=== PATIENT | female | born 1990 | race Caucasian/White ===

== ENCOUNTER 2021-03-30 00:07 | Inpatient (IN) | payer BC ==
[~2021-03-30 00:07] MED LIST: Acetaminophen 325 MG Tab PO PRN; Carboprost Tromethamine 250 MCG/1 ML Amp IM PRN; Lactated Ringers 1,000 ML IV ONE; Lactated Ringers 500 ML IV SCH; Lidocaine 1% 30 ML SDV INJECT PRN; Methylergonovine 0.2 MG/1 ML Amp IM PRN; Misoprostol 400 MCG (4 X 100 MCG TAB) RECTAL PRN; Naloxone 2 MG/2 ML Syringe IVPUSH PRN; Oxytocin/Normal Saline 30 UNIT/500 ML BAG IV SCH; Promethazine 25 MG/ML SDV IM PRN; Sodium Chloride 0.9% 10 ML Syringe FLUSH PRN; Tranexamic Acid 1,000 MG in Sodium Chloride 0.9% 100 ML IV PRN; ePHEDrine 50 MG/ML SDV IVPUSH PRN; fentaNYL 100 MCG/2 ML SDV IVPUSH PRN
[2021-03-30] MEDS: Misoprostol 25 MCG (1/4 of 100 MCG) Tab VAG PRN ×2 (01:28→05:29)
[2021-03-30] MEDS: hydrOXYzine HCl 25 MG Tab PO SCH ×2 (01:31→21:00)
[2021-03-30] MEDS: Oxytocin/Normal Saline 30 UNIT/500 ML BAG IV SCH (10:14)
[2021-03-30] MEDS: Lactated Ringers 1,000 ML IV SCH ×7 (10:14→20:08)
[2021-03-30] MEDS ORDERED: fentaNYL 100 MCG/2 ML SDV ONE ×2 (13:55→19:35)
[2021-03-30] MEDS ORDERED: EPINEPHrine 1 MG/ML SDV ONE ×2 (13:55→19:36)
[2021-03-30] MEDS: Ondansetron 4 MG/2 ML SDV IVPUSH PRN ×2 (14:00→20:03)
--- NOTE | 2021-03-30 14:59 | PCM.PRNOTE ---
- Free Text/Narrative Note: Requested to provide analgesia to full term patient in severe pain. Upon entering the room, patient is sitting on edge of bed complaining of severe abdominal/pelvic pain and discomfort. Procedure was discussed with patient including adverse outcomes and expectations. Pt consented to analgesia, SAB/IT. Pt placed into a proper sitting position. Landmarks for SAB/IT were identified and marked. Hands were washed and appropriate PPE was applied. Back was prepped with betadine x3. A sterile, transparent, fenestrated drape was applied. Excess betadine was removed. Using 3 mL of a 1% lidocaine solution, a skin wheel was placed at the L2/L3 interspace. A 24 ga (4 inch) [place] spinal needle was inserted until positive for CSF. Negative for heme or paresthesias. Injected fentanyl 30 mcg, sufentanil 25 mcg, and 6 mg of a 0.75% bupivacaine solution with an epi wash. Pt was placed left lateral tilt position for approximately 20 minutes. There were zero complications or adverse outcomes. Will continue to monitor. Procedure Date & Time: 3297-5929 03/30/21
--- NOTE | 2021-03-30 18:01 | PN ---
DATE: 03/30/2021 SUBJECTIVE: The patient is doing well. She is currently status post intrathecal placement and resting comfortably. Some bloody show. No leakage of fluid at this time. monitoring strip has been category 1. After intrathecal was placed, she developed a few late decelerations which responded to administering bolus IV fluids, oxygen, and turning off the Pitocin. heart rate now at a baseline of 120 beats per minute. External stimulation does produce acceleration, and cervix was examined. She is 7 cm dilated, 95% effaced, -2 station. Bag of water bulging and intact. This was ruptured with amnio hook with return of large amount of clear fluid. She and baby have tolerated it well. Strip is currently category 1 with baseline heart rate of 120 beats per minute. Accelerations noted. Contractions appear to be less intense than they had been before and this is without having moved the toco, so I suspect we will need to reinitiate Pitocin as well to continue and effect positive labor change in to help her deliver while the [address] ASSESSMENT: 1. 40-1/7 weeks intrauterine . 2. Anemia of . PLAN: Continue active labor management and be anticipating vaginal delivery. The patient and her are well aware that things could change at any moment and urgent or emergency section indication could develop, and their questions answered. [facility] /[id number]
--- NOTE | 2021-03-30 20:23 | PCM.PRNOTE ---
- Free Text/Narrative Note: Requested to provide analgesia to full term patient in severe pain. Upon entering the room, patient is sitting on edge of bed complaining of severe abdominal/pelvic pain and discomfort. Procedure was discussed with patient including adverse outcomes and expectations. Pt consented to analgesia, SAB/IT. Pt placed into a proper sitting position. Landmarks for SAB/IT were identified and marked. Hands were washed and appropriate PPE was applied. Back was prepped with betadine x3. A sterile, transparent, fenestrated drape was applied. Excess betadine was removed. Using 3 mL of a 1% lidocaine solution, a skin wheel was placed at the L2/L3 interspace. A 24 ga (4 inch) [place]enc[place] spinal needle was inserted until positive for CSF. Negative for heme or paresthesias. Injected fentanyl 20 mcg, sufentanil 10 mcg, and 6 mg of a 0.75% bupivacaine solution with an epi wash. Pt was placed left lateral tilt position for approximately 20 minutes. There were zero complications or adverse outcomes. Will continue to monitor. Procedure Date & Time: 03/30/21
[2021-03-30] MEDS ORDERED: Metoclopramide 10 MG/2 ML SDV IVPUSH ONE (21:21)
--- NOTE | 2021-03-30 22:12 | PN ---
DATE: 03/30/2021 SUBJECTIVE: The patient has now had her second intrathecal and it is making her quite nauseous and she has thrown up several times, but is happy with resumed pain control at this time. OBJECTIVE: Vital Signs: Remained stable and can be reviewed on the monitoring strip. Baseline heart rate 120 beats per minute with moderate [id number]-idag variability, accelerations noted. [place] shows contractions approximately every 2-1/2 minutes. Cervix: 8 cm dilated. Baby does not feel as well applied against the cervix as previously had and is either swelling or concern that baby is not going to come down into the pelvis as it was previously and we are actually going backwards with cervical dilatation. Intrauterine pressure catheter was placed without complications. Good flashback noted. Nurses also going to straight cath her bladder to make sure that it is empty and we will follow closely. ASSESSMENT: 1. Arrest of dilatation. 2. 40 and 1/7 weeks intrauterine . 3. 1, para 0. 4. Anemia of . PLAN: Watch things closely to see what we are getting for MVUs and push the Pitocin as needed, so that we are getting adequate contractions. What I am seeing for the first 2 contractions, looks like we will not be meeting the necessary MVUs and we need to make her contractions stronger. [facility] /[id number]
[2021-03-31] MEDS ORDERED: Metoclopramide 10 MG/2 ML SDV IVPUSH PRN (00:57)
[2021-03-31] MEDS ORDERED: Tranexamic Acid 1,000 MG in Sodium Chloride 0.9% 100 ML IV PRN (01:08)
[2021-03-31] MEDS ORDERED: Carboprost Tromethamine 250 MCG/1 ML Amp IM PRN (01:08)
[2021-03-31] MEDS ORDERED: Simethicone 80 MG Tab.Chew PO PRN (01:08)
[2021-03-31] MEDS ORDERED: Benzocaine/Menthol 20%-0.5% Spray 78 GM Cannister TOP PRN (01:08)
[2021-03-31] MEDS: Oxytocin/Normal Saline 30 UNIT/500 ML BAG IV SCH (01:35)
[2021-03-31] MEDS: Ibuprofen 800 MG Tab PO PRN ×3 (02:19→21:34)
--- NOTE | 2021-03-31 02:31 | DEL ---
DATE: 03/31/2021 PREPROCEDURE DIAGNOSES: 1. 40-2/7 weeks' gestation. 2. 1, para 0. 3. Anemia of . 4. Blood type A positive, rubella immune, and group B strep negative. 5. Abnormal 1-hour glucose tolerance test, normal 3-hour test. POSTPROCEDURE DIAGNOSES: 1. 40-2/7 weeks gestation. 2. 1, para 1-0-0-1. 3. Anemia of . 4. Blood type A positive, rubella immune, and group B strep negative. 5. Abnormal 1-hour glucose tolerance test, normal 3-hour test. 6. Delivery of macrosomic . 7. Uterine atony. 8. Post vaginal delivery with first-degree repair. BRIEF HISTORY: A 31-year-old female with the above-listed diagnoses, was brought into the hospital at 40-1/7 weeks' gestation for induction due to postdates and suspicion that she was going to have a larger baby, but we were not expecting the size that he actually turned out to be. She had 2 doses of Cytotec and then was transitioned over to Pitocin. She then went on to have her 1st intrathecal and artificial rupture of membranes with return of clear fluid at 6 cm dilated, and then 2nd intrathecal was placed. At one point, she was down to what seemed to be a swollen anterior and posterior lip, and then went back to 8 cm dilated, and received a 2nd intrathecal, at which time we let her continue to labor and IUPC was placed for monitoring of contraction strength, which proved to be just right at the cutoff for adequate MVUs, but she did go on to complete, and pushed for 1 hour and 11 minutes resulting in delivery with details as below. With the patient in dorsal lithotomy position and legs in [place], she delivered a viable male infant over intact perineum. Baby was dried and bulb suctioned and placed upon mother's abdomen. Cord blood sample was obtained and placenta then delivered by gentle cord traction and concomitant uterine massage, inspected and intact. The patient had some brisk bleeding that was felt to be due to uterine atony. The uterus was boggy, so she was given a dose of IM Methergine. Bimanual massage of the uterus performed and she also received a dose of 800 mcg of Cytotec per rectum and additional Pitocin was ran IV using the 500 mL dose in 2 subsequent runs. The bleeding seemed to be well controlled. The vaginal area was inspected and she had a small first-degree laceration that was repaired under 1% lidocaine with good reapproximation and hemostasis. Anterior vagina did not show any lacerations. Exam showed sidewalls to be intact and cervix without lacerations. Uterus noted to be occasionally boggy, so repeat massage was performed as necessary to control uterine tone and any bleeding. FINDINGS: Viable male , weighing 4625 g, 10 pounds 3 ounces, Apgars of 9 and 9. Formal length currently pending. Head circumference 14 inches, chest 15 inches. ESTIMATED BLOOD LOSS: 400 mL. DISPOSITION: Mother and baby to remain in the room to initiate skin to skin and . [facility] /[id number]
[2021-03-31] MEDS: Prenatal Multivitamin with Calcium/Folic Acid/Iron Tab PO SCH (08:16)
[2021-03-31] MEDS: Docusate Sodium 100 MG Cap PO PRN ×2 (08:16→21:34)
[2021-03-31] MEDS: Ferrous Sulfate 325 MG Tab PO SCH (08:16)
--- NOTE | 2021-03-31 13:34 | PN ---
DATE: 03/31/2021 SUBJECTIVE: Postvaginal delivery day 0, just over 12 hours . The patient is doing well, ambulating, tolerating regular diet, voiding without difficulties, has not yet had a bowel movement. Nursing her baby and that seems to be going well. No shortness of breath or chest pain. No lightheadedness. The swelling has increased dramatically and she does not endorse any symptoms of preeclampsia. OBJECTIVE: Vital Signs: Temperature is 100.2, pulse 66, blood pressure 137/65, respiratory rate of 16, and O2 saturations 95% on room air. Heart: Regular without murmur. Lungs: Clear to auscultation bilaterally. Abdomen: Soft, mildly distended. Fundus is firm below the umbilicus. Bowel sounds are normal. Extremities: 2+ pitting edema bilaterally. LABORATORY DATA: Repeat CBC is not yet available. ASSESSMENT: 1. Postvaginal delivery, day #1. 2. Delivery of macrosomic infant. 3. 1, now para 1-0-0-1. 4. Anemia of . PLAN: Continue normal cares. Anticipating discharge home on day #2. Would be a candidate for discharge on day 1 as long as all continues to go well. [facility] /[id number]
[2021-03-31] MEDS ORDERED: EPINEPHrine 1 MG/ML SDV ONE ×2 (14:37)
[2021-03-31] MEDS ORDERED: fentaNYL 100 MCG/2 ML SDV ITHECAL ONE ×2 (14:37)
[2021-03-31] MEDS: Acetaminophen 325 MG Tab PO PRN (17:12)
[2021-04-01] MEDS: Ferrous Sulfate 325 MG Tab PO SCH (08:11)
[2021-04-01] MEDS: Ibuprofen 800 MG Tab PO PRN ×2 (08:11→17:24)
[2021-04-01] MEDS: Docusate Sodium 100 MG Cap PO PRN ×2 (08:11→21:22)
[2021-04-01] MEDS: Prenatal Multivitamin with Calcium/Folic Acid/Iron Tab PO SCH (08:11)
[2021-04-01] MEDS: Acetaminophen 325 MG Tab PO PRN (12:06)
--- NOTE | 2021-04-01 12:31 | PN ---
DATE: 04/01/2021 SUBJECTIVE: day #1, status post vaginal delivery, and doing well. She is ambulating, tolerating regular diet. Denies any chest pain or shortness of breath. Bleeding has slowed down significantly. She is passing flatus. Has not yet had a bowel movement. Voiding well. . Milk is slowly coming in. She denies any other concerns and feels things are going well. No lightheadedness or shortness of breath. OBJECTIVE: General: Well-appearing 31-year-old female. Vital Signs: Temperature is 97.4, pulse 75, blood pressure 104/62, respiratory rate of 16. Heart: Regular without murmur. Lungs: Clear to auscultation bilaterally. Abdomen: Distended, soft. Positive bowel sounds in all 4 quadrants and fundus is firm and below the umbilicus. Extremities: 2+ pitting edema. No erythema or tenderness noted. LABORATORY DATA: Hemoglobin is down to 10.7, platelets of 222. ASSESSMENT: 1. Postvaginal delivery, day #1. 2. Delivery of macrosomic . 3. Anemia of and blood loss. 4. History of uterine atony, well managed with active care and medications. 5. mother. PLAN: Continue routine cares and anticipate discharge home tomorrow as long as all continues to go well. Talked with her about continuing to do some supplementing at least a few times a day, but that I did not feel it was necessary to do it every single time she feeds the baby as he is only down 4.5%. Her questions were answered and she was comfortable with the plan. [facility] /[id number]
[2021-04-02] MEDS: Ibuprofen 800 MG Tab PO PRN ×2 (03:44→12:35)
[2021-04-02] MEDS: Docusate Sodium 100 MG Cap PO PRN (09:02)
[2021-04-02] MEDS: Prenatal Multivitamin with Calcium/Folic Acid/Iron Tab PO SCH (09:02)
[2021-04-02] MEDS: Ferrous Sulfate 325 MG Tab PO SCH (09:02)
[2021-04-02] MEDS: Acetaminophen 325 MG Tab PO PRN (09:03)
--- NOTE | 2021-04-02 11:45 | DISCH ---
ADMITTING DIAGNOSES: 1. 40-1/7 weeks' intrauterine . 2. 1, para 0. 3. Anemia of . 4. Abnormal 1-hour glucose tolerance test. Normal 3-hour test. 5. Blood type A positive, rubella immune, and group B streptococcus negative. POSTDISCHARGE DIAGNOSES: 1. 40 weeks 2 days' gestation at delivery. 2. Delivery of a large for gestational age male infant. 3. Uterine atony. 4. 1, now para 1-0-0-1. 5. Anemia of and blood loss. 6. Abnormal 1-hour glucose tolerance test. Normal 3-hour test. 7. Blood type A positive, rubella immune, and group B streptococcus negative. PROCEDURES PERFORMED: Induction of labor, intrathecal x2, artificial rupture of membranes, spontaneous vaginal delivery, first-degree laceration repair, bimanual uterine massage and administration of uterine tonic agents, Methergine and Cytotec, and intrauterine pressure catheter. BRIEF HISTORY: 31-year-old female brought into the hospital for induction of labor due to postdates and suspicion for a large infant. She did well starting with Pitocin and moving on to artificial rupture of membranes after she received her intrathecal. After her second intrathecal, she was complete and able to push for 1 hour and 11 minutes delivering a 10 pound 3 ounce, 4625 g male with score of 9 and 9, and she tolerated things quite well. There was brisk uterine bleeding at the time, which was managed with bimanual massage and administration of uterine tonic agents. After that, bleeding was well controlled. HOSPITAL COURSE: Good. Since delivery, the patient has been doing well, ambulating, tolerating regular diet, voiding and stooling without difficulties, and passing flatus well. No chest pain or shortness of breath. Bleeding has been minimal. She is and feels like her milk is coming in and denies other acute concerns. DISCHARGE CONDITION: Good. PHYSICAL EXAMINATION: Vital Signs: Temperature is 98.3, pulse 72, blood pressure 120/69, respiratory rate 16, O2 saturations 99% on room air. Heart: Regular without murmur. Lungs: Clear to auscultation bilaterally. Abdomen: Soft, mildly distended. Fundus firm and below the umbilicus. Extremities: 2+ pitting edema. No erythema or tenderness. PERTINENT LABORATORY DATA: Admission hemoglobin of 11.2, discharge 10.7. Admission platelets 224, discharge 222. She was COVID negative. DISPOSITION: Home with family. MEDICATIONS: Iron 325 mg twice daily, vitamin C twice daily with her iron, ibuprofen 800 mg every 8 hours as needed for pain, Tylenol 650 mg every 6 hours as needed for pain, vitamins 1 daily, Colace 100 mg twice daily as needed for constipation, and all purpose nipple cream to be used as needed after for nipple soreness. FOLLOWUP: She will have a 6-week check that she can schedule when she brings the baby in tomorrow for first check. Will be able to check on her for signs or symptoms of depression every time she brings the baby in. Her depression score was only 4, and she reports doing well. Normal postvaginal delivery instructions for mother were provided and all of her questions were answered. [facility] /[id number]
== END 2021-04-02 12:40 | disposition home or self-care (01) | DRG 560 ==
LOC: DL.OBCHECK 00:07 → DL.OB 00:10 → OBSVTOIN 03-31 00:07
PROVIDERS: ADMIT Family Medicine; ATTEND Family Medicine
PROC: 10E0XZZ Delivery of Products of Conception, External Approach (ICD-10-PCS; principal; 2021-03-31)
PROC: 10907ZC Drainage of Amniotic Fluid, Therapeutic from Products of Conception, Via Natural or Artificial Opening (ICD-10-PCS; 2021-03-31)
PROC: 10H07YZ Insertion of Other Device into Products of Conception, Via Natural or Artificial Opening (ICD-10-PCS; 2021-03-31)
PROC: 0HQ9XZZ Repair Perineum Skin, External Approach (ICD-10-PCS; 2021-03-31)
PROC: 3E0P7VZ Introduction of Hormone into Female Reproductive, Via Natural or Artificial Opening (ICD-10-PCS; 2021-03-31)
PROC: 3E033VJ Introduction of Other Hormone into Peripheral Vein, Percutaneous Approach (ICD-10-PCS; 2021-03-31)
PROC: 3E0R3BZ Introduction of Anesthetic Agent into Spinal Canal, Percutaneous Approach (ICD-10-PCS; 2021-03-31)
PROC: 00HU33Z Insertion of Infusion Device into Spinal Canal, Percutaneous Approach (ICD-10-PCS; 2021-03-31)
DX: O48.0 Post-term pregnancy (principal); Z37.0 Single live birth; O62.2 Other uterine inertia; O99.814 Abnormal glucose complicating childbirth; O36.63X0 Maternal care for excessive fetal growth, third trimester, not applicable or unspecified; O70.0 First degree perineal laceration during delivery; Z20.822 Contact with and (suspected) exposure to COVID-19; O99.02 Anemia complicating childbirth; D64.9 Anemia, unspecified; Z3A.40 40 weeks gestation of pregnancy
CPT/HCPCS: 01967; 36415; 51701; 59409; 85027; A9270-GY; J0171; J2210; J2405; J2550; J2590; J2765; J3010; J7120; U0002

== ENCOUNTER 2023-05-14 07:10 | Inpatient (IN) | payer OTHER ==
[2023-05-14] MEDS ORDERED: Misoprostol 25 MCG (1/4 of 100 MCG) Tab VAG PRN (08:01)
[2023-05-14] MEDS ORDERED: Tranexamic Acid 1,000 MG in Sodium Chloride 0.9% 100 ML IV PRN ×2 (08:01→22:12)
[2023-05-14] MEDS ORDERED: Lidocaine 1% 30 ML SDV INJECT ONE (08:01)
[2023-05-14] MEDS ORDERED: Acetaminophen 325 MG Tab PO PRN ×2 (08:01)
[2023-05-14] MEDS ORDERED: Ondansetron 4 MG/2 ML SDV IVPUSH PRN (08:01)
[2023-05-14] MEDS ORDERED: Misoprostol 400 MCG (4 X 100 MCG TAB) RECTAL PRN ×2 (08:01→22:12)
[2023-05-14] MEDS ORDERED: Carboprost Tromethamine 250 MCG/1 ML Amp IM PRN ×2 (08:01→22:12)
[2023-05-14] MEDS ORDERED: Misoprostol 50 MCG (1/2 of 100 MCG) Tab VAG PRN (08:01)
[2023-05-14] MEDS ORDERED: Lactated Ringers 1,000 ML IV ONE (08:01)
[2023-05-14] MEDS ORDERED: Sodium Chloride 0.9% 10 ML Syringe FLUSH PRN (08:01)
[2023-05-14] MEDS ORDERED: Methylergonovine 0.2 MG/1 ML Amp IM PRN (08:01)
[2023-05-14] MEDS ORDERED: Oxytocin/Normal Saline 30 UNIT/500 ML BAG IV SCH ×2 (08:15)
[2023-05-14 08:48] LABS: HEMATOCRIT 32.2 % (37.0-47.0); HEMOGLOBIN 10.8 g/dL (12.0-16.0); MEAN CORPUSCULAR HEMOGLOBIN 33.4 pg (27.0-34.0); MEAN CORPUSCULAR HGB CONC 33.5 g/dL (33.0-35.0); MEAN CORPUSCULAR VOLUME 99.7 fL (80-100); RED BLOOD CELL COUNT 3.23 10^6/uL (4.2-5.4); WHITE BLOOD CELL COUNT,WBC 8.2 10^3/uL (5.0-10.0)
[2023-05-14] MEDS: Lactated Ringers 1,000 ML IV SCH ×2 (09:47→21:39)
[2023-05-14] MEDS ORDERED: Bupivacaine 0.25% 10 ML SDV ONE (18:30)
[2023-05-14] MEDS ORDERED: fentaNYL 100 MCG/2 ML SDV ONE (18:30)
[2023-05-14] MEDS ORDERED: ePHEDrine 50 MG/ML SDV IVPUSH PRN (19:11)
[2023-05-14] MEDS ORDERED: Phenylephrine HCl In 0.9% NaCl 1 MG/10 ML Syringe IVPUSH PRN (19:11)
[2023-05-14] MEDS ORDERED: Ropivacaine 200 MG in Premix Bag 1 BAG EPIDUR SCH (19:15)
[2023-05-14] MEDS ORDERED: Benzocaine/Menthol 20%-0.5% Spray 78 GM Cannister TOP PRN (22:12)
[2023-05-14] MEDS ORDERED: Docusate Sodium 100 MG Cap PO PRN (22:12)
[2023-05-14] MEDS ORDERED: Simethicone 80 MG Tab.Chew PO PRN (22:12)
[2023-05-15] MEDS: Ibuprofen 800 MG Tab PO PRN ×3 (00:04→16:52)
[2023-05-15] MEDS: Prenatal Multivitamin with Calcium/Folic Acid/Iron Tab PO SCH ×2 (07:39→12:26)
[2023-05-15] MEDS ORDERED: Ferrous Sulfate 325 MG Tab PO SCH (08:00)
[2023-05-15] MEDS: Acetaminophen 325 MG Tab PO PRN ×2 (12:23→21:59)
[2023-05-16] MEDS: Ibuprofen 800 MG Tab PO PRN (01:45)
== END 2023-05-16 09:15 | disposition home or self-care (01) | DRG 807 ==
LOC: DL.OB 08:01 → OBSVTOIN 21:51 → DL.OB 21:51
PROVIDERS: ADMIT Family Medicine; ATTEND Family Medicine
PROC: 10E0XZZ Delivery of Products of Conception, External Approach (ICD-10-PCS; principal; 2023-05-14)
PROC: 3E0P7VZ Introduction of Hormone into Female Reproductive, Via Natural or Artificial Opening (ICD-10-PCS; 2023-05-14)
PROC: 3E0R3BZ Introduction of Anesthetic Agent into Spinal Canal, Percutaneous Approach (ICD-10-PCS; 2023-05-14)
PROC: 00HU33Z Insertion of Infusion Device into Spinal Canal, Percutaneous Approach (ICD-10-PCS; 2023-05-14)
DX: O24.429 Gestational diabetes mellitus in childbirth, unspecified control (principal); Z37.0 Single live birth; O99.02 Anemia complicating childbirth; O69.89X0 Labor and delivery complicated by other cord complications, not applicable or unspecified; Z90.49 Acquired absence of other specified parts of digestive tract; Z98.890 Other specified postprocedural states; Z88.8 Allergy status to other drugs, medicaments and biological substances; Z3A.39 39 weeks gestation of pregnancy
CPT/HCPCS: 01967; 36415; 51702; 59025; 59409; 85027; A9270-GY; J2405; J2590; J2795; J7120

== ENCOUNTER 2025-05-10 00:04 | Inpatient (IN) | payer OTHER ==
[2025-05-10] MEDS ORDERED: Sodium Chloride 0.9% 10 ML Syringe FLUSH PRN ×2 (00:56→12:18)
[2025-05-10] MEDS ORDERED: Carboprost Tromethamine 250 MCG/1 mL Vial IM PRN ×2 (00:56→12:18)
[2025-05-10] MEDS ORDERED: Misoprostol 50 MCG (1/2 of 100 MCG) Tab PO PRN (00:56)
[2025-05-10] MEDS ORDERED: Misoprostol 25 MCG (1/4 of 100 MCG) Tab PO PRN (00:56)
[2025-05-10] MEDS ORDERED: Oxytocin/Lactated Ringers 30 UNIT/500 ML BAG IV SCH (01:00)
[2025-05-10 01:08] LABS: PLATELET COUNT,PLT 212.0 10^3/uL (150-450); RED BLOOD CELL COUNT 3.19 10^6/uL (4.2-5.4); WHITE BLOOD CELL COUNT,WBC 6.8 10^3/uL (5.0-10.0)
[2025-05-10] MEDS: Misoprostol 50 MCG (1/2 of 100 MCG) Tab PO SCH (01:20)
[2025-05-10] MEDS: Lactated Ringers 1,000 ML IV ONE (08:26)
[2025-05-10] MEDS: Lactated Ringers 1,000 ML IV SCH (08:40)
[2025-05-10] MEDS ORDERED: ePHEDrine 50 MG/ML SDV IVPUSH PRN (09:41)
[2025-05-10] MEDS: Ondansetron 4 MG/2 ML SDV IVPUSH PRN (09:43)
[2025-05-10] MEDS ORDERED: Ropivacaine 200 MG in Premix Bag 1 BAG EPIDUR SCH (09:45)
[2025-05-10] MEDS: Oxytocin/Normal Saline 30 UNIT/500 ML BAG IV SCH (10:51)
[2025-05-10] MEDS ORDERED: Witch Hazel Medicated Pads 100/Jar TOP PRN (12:18)
[2025-05-10] MEDS ORDERED: Oxytocin 10 Units/1 ML SDV IM PRN (12:18)
[2025-05-10] MEDS ORDERED: Benzocaine/Menthol 20%-0.5% Spray 78 GM Cannister TOP PRN (12:18)
[2025-05-11 06:18] LABS: PLATELET COUNT,PLT 203.0 10^3/uL (150-450); RED BLOOD CELL COUNT 3.55 10^6/uL (4.2-5.4); WHITE BLOOD CELL COUNT,WBC 9.7 10^3/uL (5.0-10.0)
[2025-05-11] MEDS: Prenatal Multivitamin with Calcium/Folic Acid/Iron Tab PO SCH (11:29)
[2025-05-11] MEDS ORDERED: fentaNYL 100 MCG/2 ML SDV EPIDUR ONE (14:06)
[2025-05-11] MEDS ORDERED: Ropivacaine 100 ML EPIDUR ONE (14:06)
== END 2025-05-11 14:07 | disposition home or self-care (01) | DRG 807 ==
LOC: DL.OB 00:04 → OBSVTOIN 12:03
PROVIDERS: ADMIT Family Medicine; ATTEND Family Medicine
PROC: 10E0XZZ Delivery of Products of Conception, External Approach (ICD-10-PCS; principal; 2025-05-10)
PROC: 10907ZC Drainage of Amniotic Fluid, Therapeutic from Products of Conception, Via Natural or Artificial Opening (ICD-10-PCS; 2025-05-10)
PROC: 3E0DXGC Introduction of Other Therapeutic Substance into Mouth and Pharynx, External Approach (ICD-10-PCS; 2025-05-10)
PROC: 3E033VJ Introduction of Other Hormone into Peripheral Vein, Percutaneous Approach (ICD-10-PCS; 2025-05-10)
PROC: 00HU33Z Insertion of Infusion Device into Spinal Canal, Percutaneous Approach (ICD-10-PCS; 2025-05-10)
PROC: 3E0R3BZ Introduction of Anesthetic Agent into Spinal Canal, Percutaneous Approach (ICD-10-PCS; 2025-05-10)
DX: O24.420 Gestational diabetes mellitus in childbirth, diet controlled (principal); Z37.0 Single live birth; Z3A.39 39 weeks gestation of pregnancy; O99.02 Anemia complicating childbirth; O69.81X0 Labor and delivery complicated by cord around neck, without compression, not applicable or unspecified
CPT/HCPCS: 36415; 51702; 59409; 85027; A9270-GY; J2003; J2405; J2590; J2795; J3010; J7120